=== PATIENT | female | born 1960 | race Caucasian/White ===

== ENCOUNTER 2016-06-25 18:41 | Emergency (ER) | payer BC ==
[~2016-06-25] VITALS: Ht 160 cm; Wt 65.8 kg
--- NOTE | 2016-06-25 19:06 | NUR ---
Pt co constipation on/off x 1 week, abd pain today last bm yesterday. pt states "not much". Awaiting md order
--- NOTE | 2016-06-25 19:08 | NUR ---
RONEY MELO AT BEDSIDE FOR EVAL
--- NOTE | 2016-06-25 20:01 | NUR ---
patient to radiology.
--- NOTE | 2016-06-25 20:10 | NUR ---
back from xr.
[2016-06-25] MEDS ORDERED: MINERAL OIL 133 ML (PYXIS) 1 EA ENEMA RC ONE ×2 (20:46→21:34)
[2016-06-25] MEDS: MINERAL OIL 133 ML (PYXIS) 1 EA ENEMA RC ONE ×2 (20:59→21:44)
--- NOTE | 2016-06-25 21:28 | NUR ---
Patient has no bowel movement after fleet enema, Dr Gonzalez at bedside to attempt digital disimpaction.
[2016-06-25] MEDS ORDERED: MAGNESIUM CITRATE 296 ML BOTTLE ONE (21:42)
[2016-06-25] MEDS: MAGNESIUM CITRATE 296 ML BOTTLE PO ONE (21:50)
--- NOTE | 2016-06-25 23:30 | NUR ---
Patient had a "good large bowel movement," and reported to have relieved from constipation.
[2016-06-25 23:39] VITALS: BP 118/78
--- NOTE | 2016-06-25 23:40 | NUR ---
Patient discharged to home in stable condition. Written and verbal after care instructions given. Patient verbalizes understanding of instruction. Patient is ambulatory with steady gait. No further complaints.
== END 2016-06-25 23:41 | disposition home or self-care (01) ==
LOC: ER 18:46
DX: K59.00 Constipation, unspecified (principal); K56.41 Fecal impaction; Z88.2 Allergy status to sulfonamides
CPT/HCPCS: 74022-TC; A4606; Z7610

== ENCOUNTER 2017-05-07 08:31 | Emergency (ER) | payer BC, OTHER ==
[~2017-05-07] VITALS: Ht 160 cm; Wt 65.8 kg
[2017-05-07 08:35] VITALS: BP 117/73
[2017-05-07] MEDS ORDERED: IBUPROFEN 400 MG TABLET ONE (08:51)
[2017-05-07] MEDS ORDERED: IBUPROFEN 400 MG TABLET PO ONE (09:00)
== END 2017-05-07 10:03 | disposition home or self-care (01) ==
LOC: ER 08:34
DX: S16.1XXA Strain of muscle, fascia and tendon at neck level, initial encounter (principal); S39.012A Strain of muscle, fascia and tendon of lower back, initial encounter; Z88.2 Allergy status to sulfonamides; V49.59XA Passenger injured in collision with other motor vehicles in traffic accident, initial encounter; Y93.89 Activity, other specified; Y92.413 State road as the place of occurrence of the external cause; Y99.8 Other external cause status
CPT/HCPCS: 72040-TC; 72100-TC; A4606; Z7610

== ENCOUNTER 2018-09-03 21:50 | Emergency (ER) | payer OTHER ==
[~2018-09-03] VITALS: Ht 160 cm; Wt 68.0 kg
[2018-09-03 22:14] VITALS: BP 130/77
== END 2018-09-03 22:51 | disposition home or self-care (01) ==
LOC: ER 21:54
DX: S80.862A Insect bite (nonvenomous), left lower leg, initial encounter (principal); S80.861A Insect bite (nonvenomous), right lower leg, initial encounter; L08.9 Local infection of the skin and subcutaneous tissue, unspecified; E78.5 Hyperlipidemia, unspecified; Z88.2 Allergy status to sulfonamides; W57.XXXA Bitten or stung by nonvenomous insect and other nonvenomous arthropods, initial encounter; Y93.89 Activity, other specified; Y92.89 Other specified places as the place of occurrence of the external cause; Y99.8 Other external cause status